=== PATIENT | female | born 1975 | race Caucasian/White ===

== ENCOUNTER → 2023-10-27 08:29 | Outpatient (REF) | payer BC, SELFPAY | LOC: WDC 08:29 | PROVIDERS: ATTENDING PHYSICIAN Nurse Practitioner Adult Health; FAMILY PHYSICIAN Nurse Practitioner | DX: Z12.31 Encounter for screening mammogram for malignant neoplasm of breast (principal) | CPT/HCPCS: 77063; 77067 ==

== ENCOUNTER 2024-01-01 07:19 | Emergency (ER) | payer BC, SELFPAY ==
[2024-01-01 07:20] VITALS: BP 149/89
--- NOTE | 2024-01-01 08:01 | ED.GENMED ---
History of Present Illness
General
Chief Complaint: Musculo-Skeletal Complaint
Source: patient
Exam Limitations: none
Time Seen by Provider: 01/01/24 07:34
Nursing documentation reviewed up to this point in time: agreed with
History of Present Illness
History of Present Illness:
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 Denies headache. Denies blurred vision. Denies dizziness. Denies
loss of sensation or weakness. Over the past 24 hours, however, patient has noted painful swallowing sensation. Denies difficulty with ambulation. Denies previous history of similar symptoms. Denies recent illness.
Past History
Past History
ED Past Medical History: None
ED Past Surgical History: Other (Noncontributory)
Social History
Tobacco: Non-smoker
Alcohol: None
Drug: None
Personal:
Living: with family
Family History
Family History: Other (Noncontributory)
Review of Systems
Review of Systems
Allergies reviewed?: Yes
All Other Systems: ROS reviewed and negative except as documented in HPI and ROS
Constitutional: Reports no symptoms
EENT: Reports sore throat
Respiratory: Reports no symptoms
Cardiac: Reports no symptoms
ABD/GI: Reports no symptoms
Musculoskeletal: Reports neck pain
Skin: Reports no symptoms
Neurological: Reports no symptoms; Denies dizzy, headache, weakness or numbness
Phy Exam
Physical Exam
Physical Exam:
Physical Exam
General: mild painful distress, not acutely ill. afebrile.
Head: nc/at. eomi
Neck: supple. mild diffuse cervical tenderness to palpation at level of C3-4
Abdomen: normal bowel sounds. not tender.
Neuro: alert and oriented. no focal neurological deficits
Skin: no rash
Psychiatric: well kept. interactive and cooperative
Extremities: no edema. no calf tenderness.
Course
Orders/Labs/Results
Orders:
Orders
01/01/24 07:56
CR Cervical Spine 4 Or 5 Vw Urgent
Comment:
Reason For Exam: pain at level of C3-4
01/01/24 09:34
Dexamethasone Pf [Decadron] 10 mg PO NOW STA
Vital Signs
Initial and Last Documented VS:
Initial Vital Signs
Temp Pulse Resp BP Pulse Ox
98.1 F 74 16 149/89 98
01/01/24 07:20 01/01/24 07:20 01/01/24 07:20 01/01/24 07:20 01/01/24 07:20
Last Documented Vital Signs
Temp Pulse Resp BP Pulse Ox
98.1 F 63 18 140/77 100
01/01/24 07:20 01/01/24 10:02 01/01/24 10:02 01/01/24 10:02 01/01/24 10:02
MDM/Problems Addressed
MDM/Problems Addressed:
X-ray: no acute findings.
History and exam consistent with likely cervical nerve impingement. Otherwise, patient is afebrile, hemodynamically stable, and without any neurological deficit. Patient will be treated symptomatically, with recommendation to continue to use warm
compress at home, along with NSAIDs, as well as muscle relaxant, as needed. In addition, strongly recommended PCP follow-up as an outpatient, including reevaluation and potential MRI cervical spine as an outpatient, if symptoms persist. Advised to
return to ED immediately with any neurological deficit. Patient expresses understanding at time of discharge, to the care of her family.
*Critical Care Note
Total Time (30-74mins, 75-104mins- exclusive of procedures): Not Applicable
ED Attending Note
-
Portions of this chart may have been created with voice recognition software.� Occasional wrong word or��sound alike� substitutions may have occurred due to the inherent limitations of voice recognition software.
Discharge Plan
Departure
Patient Disposition: Home (Routine Discharge)
Date of Disposition: 01/01/24
Time of Disposition: 09:37
Patient with high blood pressure during this ER visit?: Yes
Discharge Problem:
Neck pain
Instructions: Neck Pain ED
Prescriptions:
New
cyclobenzaprine 10 mg tablet
10 mg PO TIDPRN PRN (Reason: muscle spasm) Qty: 14 0RF
No Action
No Meds [No Current Medications]
0
epinephrine [EpiPen] 0.3 MG/0.3/SYRINGE auto-injector
0.3 mg IM ONCE PRN (Reason: allergic reaction) Qty: 1 2RF
methylprednisolone [Medrol (Tony)] 4 MG tablets,dose pack
4 mg PO DAILY Qty: 21 0RF
Rx Instructions:
Take 6 tablets on Day 1, 5 tablets on Day 2, 4 tablets on Day 3,
3 tablets on Day 4, 2 tablets on Day 5, 1 tablet on Day 6.
Referrals:
Chanell Gray CRNP [Family Provider] -
Stand Alone Forms: Return to Work
Activity Restrictions/Additional Instructions:
As discussed, please follow-up with your primary care physician for reevaluation, including potential MRI cervical spine as an outpatient, if symptoms persist. Your prescription has been sent electronically to [facility] pharmacy in [place].
Interventions
Interventions:
*Risk Screen - Suicide Last Done: 01/01/24 10:00
*General Assessment Last Done: 01/01/24 07:20
*Neglect/Abuse Screening Last Done: 01/01/24 10:00
ED- Fall Risk Assessment Last Done: 01/01/24 10:00
*ED COVID-19 Vaccine History Last Done: 01/01/24 07:20
*Nursing Disposition Last Done: 01/01/24 10:00
ED-Musculoskeletal Assessment Last Done: 01/01/24 08:43
Discharge Date and Time
Discharge Date/Time: 01/01/24 10:15
Print Language: SERBIAN
[2024-01-01] MEDS: DECADRON 10 MG PO (09:55)
[2024-01-01 10:02] VITALS: BP 140/77
== END 2024-01-01 10:15 | disposition home or self-care (01) ==
LOC: EMR 07:19
PROVIDERS: EMERGENCY PHYSICIAN Emergency Medicine; FAMILY PHYSICIAN Nurse Practitioner
DX: M54.2 Cervicalgia (principal); R03.0 Elevated blood-pressure reading, without diagnosis of hypertension; Z88.6 Allergy status to analgesic agent; Z91.040 Latex allergy status; Z88.5 Allergy status to narcotic agent; Z91.010 Allergy to peanuts; Z91.018 Allergy to other foods; Z91.048 Other nonmedicinal substance allergy status
CPT/HCPCS: 99283; 72050

== ENCOUNTER → 2024-10-28 10:09 | Outpatient (REF) | payer BC, SELFPAY | LOC: WDC 10:09 | PROVIDERS: ATTENDING PHYSICIAN Nurse Practitioner Adult Health; FAMILY PHYSICIAN Nurse Practitioner | DX: Z12.31 Encounter for screening mammogram for malignant neoplasm of breast (principal) | CPT/HCPCS: 77063; 77067 ==

== ENCOUNTER → 2024-12-27 07:48 | Outpatient (REF) | payer BC, SELFPAY ==
[2024-12-27 08:57] LABS: % Basophils 1.4 % (0-2); % Eosinophils 4.2 % (0-6); % Immature Granulocytes 0.3 % (0-0.5); % Lymphocytes 29.5 % (20.5-51.1); % Monocytes 6.2 % (1.7-9.3); % Neutrophils 58.4 % (42.2-75.2); Absolute Basophils 0.1 10^3/uL (0-0.2); Absolute Eosinophils 0.3 10^3/uL (0-0.7); Absolute Lymphocytes 2.2 10^3/uL (1.2-3.4); Absolute Monocytes 0.5 10^3/uL (0.1-0.6); Absolute Neutrophils 4.3 10^3/uL (1.4-6.5); Hematocrit 38.5 % (37.0-47.0); Hemoglobin 12.9 g/dL (12.0-16.0); Mean Corp Hgb Conc. 33.5 g/dL (33.0-37.0); Mean Corpuscular Hgb 28.7 pg (27.0-31.0); Mean Corpuscular Volume 85.6 fL (81.0-99.0); Mean Platelet Volume 9.6 fL (7.4-10.4); Nucleated Red Blood Cells % 0 %; Platelet Count 384 10^3/uL (130-400); Red Cell Dist. Width 13.8 % (11.5-14.5); White Blood Cell Count 7.3 10^3/uL (4.8-10.8)
[2024-12-27 10:48] LABS: ALT (SGPT) 17 U/L (0-35); AST (SGOT) 22 U/L (14-36); Albumin 4.1 g/dl (3.5-5.0); Alkaline Phosphatase 67 U/L (38-126); Blood Urea Nitrogen 19 mg/dl (7-17); Calcium 9.5 mg/dl (8.4-10.2); Carbon Dioxide 26 mmol/L (22-30); Chloride 108 mmol/L (98-107); Glucose 89 mg/dl (70-99); HDL Cholesterol 67 mg/dl; LDL Cholesterol, Calculated 119 mg/dl; Sodium 141 mmol/L (135-145); Total Bilirubin 0.4 mg/dl (0.2-1.3); Total Cholesterol 203 mg/dl (50-199); Total Protein 7.1 g/dl (6.3-8.2); Triglyceride 86 mg/dl (10-149); Very Low Density Lipoprotein 17 mg/dl (0-30); eGFR > 60.00
== END ==
LOC: REG 07:48
PROVIDERS: ATTENDING PHYSICIAN Hospitalist
DX: Z00.00 Encounter for general adult medical examination without abnormal findings (principal); E78.5 Hyperlipidemia, unspecified
CPT/HCPCS: 36415; 80053; 80061; 85025